=== PATIENT | female | born 1980 | race Caucasian/White ===

== ENCOUNTER 2019-01-15 15:54 | Emergency (ER) | payer MEDICAID ==
[~2019-01-15] VITALS: Ht 167.6 cm; Wt 68.9 kg
[2019-01-15 16:14] VITALS: BP_SYST 144
--- NOTE | 2019-01-15 16:20 | NUR ---
Ambulatory to bed 3
--- NOTE | 2019-01-15 16:30 | NUR ---
Patient arrived via POV, AAOx4, and ambulatory with steady gait. Patient is here for medication refill. Patient reportes having history of chronic back pain with sciatic. Tramadol and tylenol for pain relief, but she needs refill. Pain is currently rated at 6/10. The pain radiates down bilateral legs. Patient states she attempted to get an appointment for refill with vince DUGAN. Patient denies any recent trauma, N/V/D. Will continue to follow up and monitor patient for changes in status.
--- NOTE | 2019-01-15 16:30 | NUR ---
ER at bedside examining patient.
[2019-01-15 17:20] VITALS: BP_SYST 142
--- NOTE | 2019-01-15 17:22 | NUR ---
Patient given written and verbal discharge instructions and verbalizes understanding. ER MD discussed with patient the results and treatment provided. Patient in stable condition. ID arm band removed. Rx of Tramadol and Tylenol given. Patient educated on pain management and to follow up with PMD. Pain Scale 2/10 tolerable for pt's. Opportunity for questions provided and answered. Medication side effect fact sheet provided.
== END 2019-01-15 17:22 | disposition home or self-care (01) ==
LOC: SED 15:54
DX: Z76.0 Encounter for issue of repeat prescription (principal); R03.0 Elevated blood-pressure reading, without diagnosis of hypertension; Z88.6 Allergy status to analgesic agent; Z88.8 Allergy status to other drugs, medicaments and biological substances
CPT/HCPCS: 99283

== ENCOUNTER 2019-01-22 09:48 | Emergency (ER) | payer MEDICAID ==
[~2019-01-22] VITALS: Ht 167.6 cm; Wt 68.0 kg
[2019-01-22 09:54] VITALS: BP_SYST 139
--- NOTE | 2019-01-22 10:00 | NUR ---
Patient to ER bed 6 to gown for evaluation. Side rails up.
--- NOTE | 2019-01-22 10:02 | NUR ---
Pt presents to ED c/o urinary symptoms x 1 week and exacerbation of chronic back pain .
--- NOTE | 2019-01-22 10:03 | NUR ---
Urine specimen collected and analyzed in ER. Results given to ER .
--- NOTE | 2019-01-22 10:10 | NUR ---
ER at bedside examining patient.
[2019-01-22] MEDS ORDERED: KETOROLAC TROMETHAMINE 60 MG/2 ML VIAL IM ONE (10:15)
--- NOTE | 2019-01-22 10:18 | NUR ---
Pt medicated tolerated well.
[2019-01-22 11:00] VITALS: BP_SYST 140
--- NOTE | 2019-01-22 11:00 | NUR ---
Patient given written and verbal discharge instructions and verbalizes understanding. ER MD discussed with patient the results and treatment provided. Patient in stable condition. ID arm band removed. Rx of tylenol #3,cipro and tramadol given. Patient educated on pain management and to follow up with PMD. Pain Scale 3. Opportunity for questions provided and answered. Medication side effect fact sheet provided.
[2019-01-22 11:01] LABS: BILIRUBIN,URINE NEGATIVE (NEGATIVE); BLOOD, URINE NEGATIVE (NEGATIVE); CLARITY/URINE SL HAZY (CLEAR); COLOR,URINE YELLOW (YELLOW); GLUCOSE,URINE NEGATIVE (NEGATIVE); KETONES,URINE TRACE (NEGATIVE); LEUKOCYTE ESTERASE ,URINE NEGATIVE (NEGATIVE); NITRITE, URINE NEGATIVE (NEGATIVE); PROTEIN URINE 1+ (NEGATIVE); UROBILINOGEN,URINE 0.2 (0.2-1.0)
[2019-01-22 11:02] LABS: BARBITURATE, URINE NEGATIVE (NEG <=200); BENZODIAZEPINE, URINE NEGATIVE (NEG <=150); CANNABINOID, URINE NEGATIVE (NEG <=50); COCAINE, URINE NEGATIVE (NEG <=150); METHAMPHETAMINES SCREEN,URINE POSITIVE (NEG <=500); OPIATE, URINE NEGATIVE (NEG <=100); PHENCYCLIDINE SCREEN,URINE NEGATIVE (NEG <=25); UR TRICYCLIC ANTIDEPRESSANTS POSITIVE (NEG <=300); URINE AMPHETAMINE NEGATIVE (NEG <=500); URINE METHADONE NEGATIVE (NEG <=200); URINE OXYCODONE SCREEN NEGATIVE (NEG <=100); URINE PROPOXYPHENE SCREEN NEGATIVE (NEG <=300)
[2019-01-22 11:13] LABS: BACTERIA,URINE MODERATE /HPF (None Seen); MUCUS,URINE 1+ /LPF (None Seen)
== END 2019-01-22 11:00 | disposition home or self-care (01) ==
LOC: SED 09:48
DX: R31.9 Hematuria, unspecified (principal); R30.0 Dysuria; G89.29 Other chronic pain; M54.5 Low back pain
CPT/HCPCS: 80307; 81000; 81025; 87086; 96372; 99283; J1885

== ENCOUNTER 2019-03-11 17:59 | Emergency (ER) | payer MEDICAID ==
[~2019-03-11] VITALS: Ht 165.1 cm; Wt 63.5 kg
[2019-03-11 18:06] VITALS: BP_SYST 116
[2019-03-11 18:58] VITALS: BP_SYST 152
== END 2019-03-11 18:58 | disposition home or self-care (01) ==
LOC: SED 17:59
DX: G89.29 Other chronic pain (principal); M54.9 Dorsalgia, unspecified; F31.9 Bipolar disorder, unspecified; Z76.0 Encounter for issue of repeat prescription; Z88.6 Allergy status to analgesic agent; Z88.8 Allergy status to other drugs, medicaments and biological substances
CPT/HCPCS: 99283

== ENCOUNTER 2019-03-21 12:09 | Emergency (ER) | payer MEDICAID ==
[~2019-03-21] VITALS: Ht 165.1 cm; Wt 63.5 kg
[2019-03-21 12:21] VITALS: BP_SYST 130
--- NOTE | 2019-03-21 12:29 | NUR ---
Patient to ER bed 5 to gown for evaluation. Side rails up. Report given to Deidre FRANCISCO.
--- NOTE | 2019-03-21 12:40 | NUR ---
ER Dr. Spann at bedside examining patient.
--- NOTE | 2019-03-21 13:05 | NUR ---
Patient presented to ER with back pain. Patient A&Ox4, ambulatory to ER, afebrile, C/O lower back pain radiating to bilat legs. Patient states pain is 9/10, denies N/V/D. Patient states she wants tto be seen in the ER for medication refill, patient statesshe has not seen PMD because PMD referrs pt to ER. Patient states health Hx include Schizoaffective bipolar disorder & tubal ligation.
[2019-03-21] MEDS ORDERED: traMADol HCL HCL 50 MG TABLET (ULTRAM) PO ONE (13:15)
[2019-03-21 13:50] VITALS: BP_SYST 130
--- NOTE | 2019-03-21 13:50 | NUR ---
Patient given written and verbal discharge instructions and verbalizes understanding. ER MD discussed with patient the results and treatment provided. Patient in stable condition. ID arm band removed. Rx of Seroquel, tylenol 3, tramadol given. Patient educated on pain management and to follow up with PMD. Pain Scale 0/10. Opportunity for questions provided and answered. Medication side effect fact sheet provided.
== END 2019-03-21 13:50 | disposition home or self-care (01) ==
LOC: SED 12:09
DX: G89.29 Other chronic pain (principal); M54.9 Dorsalgia, unspecified; Z88.6 Allergy status to analgesic agent; Z88.8 Allergy status to other drugs, medicaments and biological substances
CPT/HCPCS: 99283

== ENCOUNTER 2019-05-25 09:12 | Emergency (ER) | payer MEDICAID ==
[~2019-05-25] VITALS: Ht 165.1 cm; Wt 63.5 kg
[2019-05-25 09:26] VITALS: BP_SYST 113
--- NOTE | 2019-05-25 10:10 | NUR ---
Patient to ER bed 1 to gown for evaluation. Side rails up. Report given to Ted FRANCISCO.
--- NOTE | 2019-05-25 10:13 | NUR ---
ER Dr. Georges at bedside examining patient.
--- NOTE | 2019-05-25 10:14 | NUR ---
Patient is awake, alert, and oriented x4. Patient states she is here for pain and bipolar medication refills.
[2019-05-25 10:23] VITALS: BP_SYST 113
--- NOTE | 2019-05-25 10:23 | NUR ---
Patient given written and verbal discharge instructions and verbalizes understanding. ER MD discussed with patient the results and treatment provided. Patient in stable condition. ID arm band removed. Rx of seroquel XR, methocarbamol given. Patient educated on pain management and to follow up with PMD. List of county clinics given. Pain Scale 0/10. Opportunity for questions provided and answered. Medication side effect fact sheet provided.
== END 2019-05-25 10:23 | disposition home or self-care (01) ==
LOC: SED 09:12
DX: M54.30 Sciatica, unspecified side (principal); Z76.0 Encounter for issue of repeat prescription; Z88.0 Allergy status to penicillin; Z88.8 Allergy status to other drugs, medicaments and biological substances
CPT/HCPCS: 99283